=== PATIENT | female | born 1995 | race Caucasian/White ===

== ENCOUNTER 2020-03-02 21:46 | Emergency (ER) | payer SELFPAY ==
[~2020-03-02] VITALS: Ht 162.6 cm; Wt 59.0 kg
[2020-03-02] MEDS ORDERED: LIDOCAINE 1%-EPI 1:100,000 20 ML VIAL ONE (22:26)
[2020-03-02] MEDS ORDERED: LIDOCAINE 1%-EPI 1:100,000 50 ML VIAL IJ ONE (22:30)
--- NOTE | 2020-03-02 22:31 | NUR ---
Gautam ELIZONDO SPEEDBOAT OPERATOR IS AT THE BEDSIDE SUTURING THE PT'S LACERATION
--- NOTE | 2020-03-02 23:00 | NUR ---
WOUND CLEANED & BANDAGE PLACED OVER LAC.
[2020-03-02] MEDS ORDERED: TDAP [DIPH/PERTUSSIS/TET] 0.5 ML VIAL IM ONE ×2 (23:03→23:30)
--- NOTE | 2020-03-02 23:16 | NUR ---
PT REC'D TDAP IM IN LEFT DELTOID. LOT: [id number] EXP: 05/07/21
--- NOTE | 2020-03-02 23:18 | NUR ---
Patient discharged to home in stable condition. Written and verbal after care instructions given. Patient verbalizes understanding of instruction. PT AMBULATED OUT WITH A SLIGHT LIMP. VSS
[2020-03-02 23:19] VITALS: BP 127/78
== END 2020-03-02 23:19 | disposition home or self-care (01) ==
LOC: ER 21:55
DX: S91.312A Laceration without foreign body, left foot, initial encounter (principal); Z23 Encounter for immunization; W26.0XXA Contact with knife, initial encounter; Y93.89 Activity, other specified; Y92.89 Other specified places as the place of occurrence of the external cause; Y99.8 Other external cause status
CPT/HCPCS: 12001; 90471; 90715; 99283; J3490 ×2